=== PATIENT | male | born 1950 | race Caucasian/White ===

== ENCOUNTER 2017-06-08 18:48 | Emergency (ER) | payer OTHER ==
[~2017-06-08] VITALS: Ht 180.3 cm; Wt 96.1 kg
[~2017-06-08 18:48] MED LIST: AVODART0.5 MG PO; BENADRYL25 MG PO; CELECOXIB200 MG PO; CINNAMON PLUS1 EACH PO; COUMADIN1 MG PO; DOK PLUS TABLE1 EACH PO; ENDOCET 5-3251 EACH PO; FLOMAX0.4 MG PO; GLIPIZIDE10 MG PO; GLUCOSAMINE SU500 M1 PO; HYDROCHLOROTHIA25 MG PO; IRON325 M1 PO; JANUVIA100 MG PO; LISINOPRIL20 MG PO; MAGNESIUM CITR100 MG PO; METFORMIN HCL1000 MG PO; NAPROSYN500 MG PO; NITROFURANTOIN100 M3 PO; TURMERIC500 MG PO; VITAMIN D31000 UNIT PO; ZESTRIL30 MG PO
[2017-06-08 19:12] VITALS: BP 187/96
[2017-06-08 20:29] LABS: ADD MIUA? YES; BILIRUBIN NEGATIVE; BLOOD LARGE; COLOR YELLOW ((YELLOW)); GLUCOSE (STRIP) NEGATIVE; KETONES NEGATIVE; LEUKOCYTES MODERATE; NITRITE NEGATIVE; PROTEIN (STRIP) 30; SPECIFIC GRAVITY 1.016 (1.000-1.030); UROBILINOGEN 0.2 MG/DL (0.2-1.0)
[2017-06-08 20:49] LABS: RED BLOOD CELLS TNTC /HPF (0-5)
[2017-06-08 20:50] LABS: BACTERIA 3+ /HPF; EPITHELIAL CELLS 1+ /HPF; MUCUS NONE SEEN /LPF
[2017-06-08] MEDS ORDERED: ZOFRAN ODT8 MG PO (23:05)
== END 2017-06-08 23:27 | disposition home or self-care (01) ==
LOC: EME 18:48 → RME 18:48
PROVIDERS: Physician Assistant
DX: N20.0 Calculus of kidney (principal); I10 Essential (primary) hypertension; E11.9 Type 2 diabetes mellitus without complications; Z79.84 Long term (current) use of oral hypoglycemic drugs
CPT/HCPCS: 74176; 81003; 99281; 99283; J1885